=== PATIENT | female | born 1990 | race Caucasian/White ===

== ENCOUNTER 2017-10-29 15:26 | Inpatient (IN) ==
[2017-10-29] MEDS ORDERED: Ondansetron 4 MG/2 ML VIAL IVP PRN (15:39)
[2017-10-29] MEDS ORDERED: Naloxone 0.4 MG/ML INJ IVP PRN (15:39)
[2017-10-29] MEDS ORDERED: Famotidine 20 MG/2 ML VIAL IVP PRN (15:39)
[2017-10-29] MEDS ORDERED: Lidocaine -MPF 1% 2 ML VIAL INFILT PRN (15:39)
--- NOTE | 2017-10-29 15:59 | OB/GYN Procedure Note ---
Delivery - Delivery Date: 10/29/17 Provider: Ginna Valdez Intrapartum events: precipitous labor- <3hr Delivery monitor: external FHT Anesthesia: none Quantitated Blood Loss: 50 - (s) Infant A Delivery Date: 10/29/17 Delivery Time: 15:25 Presentation: vertex Position: OA Route of delivery: Gender: Male Viability: Viable Pounds: 6 Ounces: 11 Weight Gram: 3020 kg at 1 minute: 8 at 5 mins: 9 Shoulder Dystocia: not encountered Specimens collected: cord blood Placenta: spontaneous Cord: nuchal cord, 3 umbilical vessels, delivered through nuchal - Repair Episiotomy: none Laceration Description: Labial - Complications Delivery complications: none Delivery comments: Patient with no care presented to L&D with complaints of rupture and onset of contractions 1 hour before arrival. heart tones and 70s noted on arrival, vaginal exam shows complete/+3 station, maternal bearing down efforts to of liveborn male. Vertex delivered OA, shoulders and body easily followed, nuchal cord 1 noted, no shoulder dystocia encountered. Vigorous placed on maternal abdomen. Apgars 8/9. Bilateral labial repairs left hemostatic and unrepaired. Placenta delivered spontaneously ( Stefania) and complete upon inspection. EBL 50 Fundus firm, no pitocin given at this time. Mother and infant left bonding on labor and delivery. - Disposition Mom disposition: stable in LDR [place] disposition: stable in LDR
--- NOTE | 2017-10-29 16:12 | OB/GYN History & Physical ---
Date of Encounter: 10/29/17 Time of Encounter: 15:59 Assessment and Plan (1) No care in current in third trimester Current visit: Yes Status: Acute Admit to labor and delivery lab panel Immediate vaginal delivery due to decreased heart tones Routine care Social service consult History of Present Illness Chief complaint: contractions/SROM HPI: Ms. Pugh is a 27 year old female no care for this presents with complaints of contractions, and leaking of fluid as of 1 hour ago. Patient states she says had monthly cycles, last cycle in August, began to feel movement and flutters a couple months ago, strong movement as of 1 month ago. No complications with other pregnancies, all term pregnancies, no bleeding or issues with this . Labs: A+ (found in historic blood bank records) ,Pending panel Past Med Surg Social Fam HX - Family History Mother History Unknown: Yes Adopted: Yes Obstetrical History - Pregnancies : 4 Para: 3 Term: 3 : 0 Ab's: 0 Livin Medications and Allergies No Known Home Drugs 10/29/17 [History] 3 Allergy/AdvReac Type Severity Reaction Status Date / Time topiramate [From Topamax] Allergy Blurry Verified 10/29/17 15:35 Vision Exam - Constitutional Constitutional: well developed, well nourished, no acute distress, average body habitus - Neck Neck exam: full ROM - Lungs Respiratory exam: CTAB - Cardiovascular Cardiovascular exam: RRR - Abdomen Abdomen: Present: gravid, non tender - Extremities Extremities exam: normal capillary refill, normal inspection - Cervix Dilation: 10 Station: +3 - Anus/Rectum Anus/Rectum: Present: normal perianal skin Results All other labs normal. - VTE Reasons for not Prescribing Prophylaxis: Treatment not Indicated - Low risk for VTE
[2017-10-29 17:00] LABS: Basophils % 0.1 %; Eosinophils % 0.1 %; Hematocrit 35.8 % (35.3-44.9); Hemoglobin 12.3 g/dL (11.5-15.4); Immature Granulocytes % 0.4 % (0-4); Lymphocytes # 1.1 K/mcL (0.6-4.6); Lymphocytes % 6.2 %; Mean Corpuscular HGB Conc 34.4 g/dL (31.6-35.5); Mean Corpuscular Hemoglobin 30.1 pg (28.0-33.3); Mean Corpuscular Volume 87.7 fL (83.0-100.0); Mean Platelet Volume 10.5 fL (9.4-12.4); Monocytes % 5.5 %; Neutrophils # 15.9 K/mcL (1.6-8.9); Platelet Count 283 K/mcL (140-400); Red Blood Count 4.08 M/mcL (3.82-4.97); Red Cell Distribution Width 13.7 % (11.5-14.5); Segmented Neutrophils % 87.7 %
[2017-10-29 17:31] LABS: HIV-1&2 Antibody & p24 Ag Nonreactive (Nonreactive); Hepatitis B Surface Antigen Nonreactive (Nonreactive)
[2017-10-29] MEDS ORDERED: Acetaminophen 325 MG TABLET PO PRN (18:05)
[2017-10-29] MEDS ORDERED: Oxytocin 20 units/ LR 1000 mL 20 UNIT/1,000 ML BAG IVC SCH (18:05)
[2017-10-29] MEDS ORDERED: Measles/Mumps/Rubella Vacc 0.5 ML VIAL SQ PRN (18:05)
[2017-10-29] MEDS ORDERED: Ibuprofen 600 MG TABLET PO PRN (18:05)
[2017-10-29 19:50] LABS: Amphetamine Screen,Urine Negative ng/mL (Cutoff=1000); Barbiturate Screen,Urine Negative ng/mL (Cutoff=200); Benzodiazepines Screen,Urine Negative ng/mL (Cutoff=200); Cannabinoid Screen,Urine Positive ng/mL (Cutoff = 50); Cocaine Screen,Urine Negative ng/mL (Cutoff= 300); Opiate Screen,Urine Negative ng/mL (Cutoff=300); Phencyclidine Screen,Urine Negative ng/mL (Cutoff=25)
[2017-10-30 06:45] LABS: Basophils % 0.2 %; Eosinophils % 0.2 %; Hematocrit 33.9 % (35.3-44.9); Hemoglobin 11.6 g/dL (11.5-15.4); Immature Platelets 4.5 % (1.1-6.1); Lymphocytes % 14.4 %; Mean Corpuscular HGB Conc 34.2 g/dL (31.6-35.5); Mean Corpuscular Hemoglobin 30.3 pg (28.0-33.3); Mean Corpuscular Volume 88.5 fL (83.0-100.0); Mean Platelet Volume 10.4 fL (9.4-12.4); Monocytes # 1.2 K/mcL (0.0-1.3); Monocytes % 8.7 %; Neutrophils # 10.6 K/mcL (1.6-8.9); Platelet Count 247 K/mcL (140-400); Red Blood Count 3.83 M/mcL (3.82-4.97); Segmented Neutrophils % 75.5 %
[2017-10-30 07:48] VITALS: BP 107/71
[2017-10-30] MEDS ORDERED: Prenatal Vit/FA 1 EACH TABLET PO SCH (09:00)
--- NOTE | 2017-10-30 09:48 | Discharge Summary ---
Date of Encounter: 10/30/17 Time of Encounter: 09:46 - Discharge Diagnosis (1) Normal vaginal delivery Priority: Primary Status: Acute Comments: Pt seen and examined at bedside Ambulating with no difficulty Voiding appropriately Tolerating PO diet; Yet to have BM Denies need for pain control Mild lochia Plans to bottlefeed Plan to discharge home pending social work consult Counseled patient on post- blues, post- depression She is considering Nexplanon for contraception. Will place prior to discharge if pt desires. (2) No care in current Priority: Secondary Status: Acute Qualifiers: Trimester: third trimester Qualified Code(s): O09.33 - Supervision of with insufficient care, third trimester - Discharge Medications Prescriptions: Ibuprofen [Motrin] 600 mg PO Q6HR PRN 14 Days #60 tablet PRN Reason: Cramping Docusate [Colace] 100 mg PO BID 14 Days #28 capsule Home Medications: Acetaminophen [Tylenol] 650 mg PO Q6HR PRN tablet 10/30/17 [Rx] Docusate [Colace] 100 mg PO BID 14 Days #28 capsule 10/30/17 [Rx] Ibuprofen [Motrin] 600 mg PO Q6HR PRN 14 Days #60 tablet 10/30/17 [Rx] Allergies/Adverse Reactions: 3 Allergy/AdvReac Type Severity Reaction Status Date / Time topiramate [From Topamax] Allergy Blurry Verified 10/29/17 15:35 Vision Data Procedures and tests throughout hospitalization: Laboratory Tests 10/29/17 10/29/17 10/29/17 15:35 15:43 15:53 WBC 18.2 H RBC 4.08 Hgb 12.3 Hct 35.8 MCV 87.7 MCH 30.1 MCHC 34.4 RDW 13.7 Plt Count 283 MPV 10.5 Immature Gran % 0.4 Seg Neutrophils % 87.7 Lymphocytes % 6.2 Monocytes % 5.5 Eosinophils % 0.1 Basophils % 0.1 Neutrophils # 15.9 H Lymphocytes # 1.1 Monocytes # 1.0 Eosinophils # 0.0 Basophils # 0.0 Immature Plt Fraction Urine Opiates Screen Ur Barbiturates Screen Ur Phencyclidine Scrn Ur Amphetamines Screen U Benzodiazepines Scrn Urine Cocaine Screen U Marijuana (THC) Screen Ur Drug Screen Interp Hep Bs Antigen Nonreactive HIV Ag/Ab Combo Qual Nonreactive Blood Type A POSITIVE 10/29/17 10/30/17 17:50 05:59 WBC 14.0 H RBC 3.83 Hgb 11.6 Hct 33.9 L MCV 88.5 MCH 30.3 MCHC 34.2 RDW 14.0 Plt Count 247 MPV 10.4 Immature Gran % 1.0 Seg Neutrophils % 75.5 Lymphocytes % 14.4 Monocytes % 8.7 Eosinophils % 0.2 Basophils % 0.2 Neutrophils # 10.6 H Lymphocytes # 2.0 Monocytes # 1.2 Eosinophils # 0.0 Basophils # 0.0 Immature Plt Fraction 4.5 Urine Opiates Screen Negative Ur Barbiturates Screen Negative Ur Phencyclidine Scrn Negative Ur Amphetamines Screen Negative U Benzodiazepines Scrn Negative Urine Cocaine Screen Negative U Marijuana (THC) Screen Positive H Ur Drug Screen Interp See Below Hep Bs Antigen HIV Ag/Ab Combo Qual Blood Type Labs on day of discharge: Labs from last 24 hours 10/30/17 10/29/17 10/29/17 05:59 17:50 15:53 WBC 14.0 H 18.2 H RBC 3.83 4.08 Hgb 11.6 12.3 Hct 33.9 L 35.8 MCV 88.5 87.7 MCH 30.3 30.1 MCHC 34.2 34.4 RDW 14.0 13.7 Plt Count 247 283 MPV 10.4 10.5 Immature Gran % 1.0 0.4 Seg Neutrophils % 75.5 87.7 Lymphocytes % 14.4 6.2 Monocytes % 8.7 5.5 Eosinophils % 0.2 0.1 Basophils % 0.2 0.1 Neutrophils # 10.6 H 15.9 H Lymphocytes # 2.0 1.1 Monocytes # 1.2 1.0 Eosinophils # 0.0 0.0 Basophils # 0.0 0.0 Immature Plt Fraction 4.5 Urine Opiates Screen Negative Ur Barbiturates Screen Negative Ur Phencyclidine Scrn Negative Ur Amphetamines Screen Negative U Benzodiazepines Scrn Negative Urine Cocaine Screen Negative U Marijuana (THC) Screen Positive H Ur Drug Screen Interp See Below Hep Bs Antigen HIV Ag/Ab Combo Qual Blood Type 10/29/17 10/29/17 15:43 15:35 WBC RBC Hgb Hct MCV MCH MCHC RDW Plt Count MPV Immature Gran % Seg Neutrophils % Lymphocytes % Monocytes % Eosinophils % Basophils % Neutrophils # Lymphocytes # Monocytes # Eosinophils # Basophils # Immature Plt Fraction Urine Opiates Screen Ur Barbiturates Screen Ur Phencyclidine Scrn Ur Amphetamines Screen U Benzodiazepines Scrn Urine Cocaine Screen U Marijuana (THC) Screen Ur Drug Screen Interp Hep Bs Antigen Nonreactive HIV Ag/Ab Combo Qual Nonreactive Blood Type A POSITIVE Date of admission: 10/29/17 19:37 Primary care physician: PCP NONE Consults: 10/29/17 18:05 Consult to Console Operator [CONS] Routine Comment: Vaginal delivery, consult needed Consult to Rifle Case Repairer [CONS] Routine Reason for SW Consult: No care Discharging clinician: Sariah Renee) Anticipated date of discharge: 10/30/17 - Patient Status Disposition: Home, Self-Care Condition: Good Functional capacity at discharge: independent ambulation Overall status at discharge: patient is progressing back to baseline - Discharge Instructions Follow Up With: NONE,PCP [Primary Care Provider] - Ginna Valdez CNM [Advanced Practice Nurse] - - Diet and Activity Activity: resume usual activities as tolerated Diet: advance to your usual diet Hospital Course Reason for admission: active labor Delivery: Episiotomy: none Laceration: other Other procedures: none complications: none Discharge diagnosis: IUP at term delivered baby: male Hospital course: Pt was who presented with no care with complaint of 1 hr of contractions and leakage of fluid. Notes that she did not realize she was until 1 month ago. Pt presented to OB triage with contractions, at +3 station. Heart Monitoring indicated FHR in 70s. Pt delivered Male 6lbs 11oz (3020g) with apgars 8/9. Delivery complicated with nuchal cord x1 which was reduced during delivery. Mother and baby transferred to post- , currently stable. Ready for discharge. Time Attestation: Total time spent providing and/or coordinating discharge services: Time Spent: Less than 30 minutes Exam - Constitutional Vitals: Temp Pulse Resp BP Pulse Ox 98.5 F 88 12 107/71 99 10/30/17 07:47 10/30/17 07:47 10/30/17 07:47 10/30/17 07:47 10/30/17 07:47 General appearance IM: cooperative, A&O X 3, pleasant, no acute distress - Respiratory Respiratory exam: Present: CTAB - Cardiovascular Cardiovascular exam IM: Present: RRR, +S1, +S2 - GI/Abdominal GI/Abdominal exam IM: normal bowel sounds, soft - Uterine Tone: Firm Uterus Position: At Umbilicus - Extremities Exam Extremities exam IM: Present: full ROM, normal capillary refill, radial pulses palpable and symmetrical - Neurological Exam Neurological exam: alert, oriented X3 - Psychiatric Additional comments: reports good mood - Attending Attestation I have seen and examined pt independent of resident physician. I agree with the assessment and plan as outlined. Plan for discharge home today after social work consult and contraception if pt desires. Pt to follow-up in our office in 4 -6 weeks.
[2017-10-30] MEDS ORDERED: Etonogestrel 68 MG IMPLANT IL ONE (12:28)
--- NOTE | 2017-10-30 15:01 | OB/GYN Procedure Note ---
OB-STRAW BOSS: Procedure - Diagnosis Date of procedure: 10/30/17 Pre-op diagnosis: contraceptive education Post-op diagnosis: other (contraceptive implant placed) - Procedure Procedure: Nexplanon Surgeon: Soledad Faust Was there an physician assistant present: No Anesthesia Type: Local Estimated blood loss (cc): 0 Specimens collected: none Disposition: same day Narrative: Informed consent obtained following discussion of risks and benefits. Pt placed in supine position. Betadine used to clean the skin. 1% lidocaine used to anesthetize the area on her upper, inner, right arm. Nexplanon was then placed just under the skin. The pt and myself are able to feel the implant following placement. A pressure dressing was applied. Pt educated on s/sx complications and care of the area.
== END 2017-10-30 17:40 | disposition home or self-care (01) | DRG 560 ==
LOC: 1NENULAB → 1NENUOBS 18:12
PROVIDERS: ADMIT Advanced Practice Midwife; ATTEND Advanced Practice Midwife